=== PATIENT | male | born 1990 | race Caucasian/White ===

== ENCOUNTER 2017-04-13 23:47 | Emergency (ER) | payer SELFPAY ==
[~2017-04-13] VITALS: Ht 180.3 cm; Wt 58.6 kg
[2017-04-13 23:55] VITALS: TEMP 36.7; Ht 180.3 cm; Wt 58.6 kg
[2017-04-14] MEDS ORDERED: IBUP-103 PO (00:24)
--- NOTE | 2017-04-14 00:35 | EMERGENCY ROOM VISIT NOTE ---
History First contact with patient: 00:05 Chief Complaint: ARM PAIN Stated Complaint: LEFT ARM HURTING, NUMB History of Present Illness The patient is a 26 year old male who presents to the Emergency Room with complaints of left arm pain. Patient states symptoms have been going on for approximately 5 days. The patient states the pain radiates down the length of his left arm and he also reports the arm intermittently goes numb. He states that the pain makes it difficult for him to hold things with his left hand. He rates the discomfort a 2/10. He does report some occasional neck pain. Denies any injuries to the arm. Denies any fevers or redness. Review of Systems A 6 point review of systems was reviewed with the patient with pertinent positives and negatives as per history of present illness. All else were negative. Social History Smoking Status: Current Every Day Smoker Current/Historical Medications Scheduled Prednisone (Prednisone), 0 PO DAILY Scheduled PRN Ibuprofen Tab (Advil), 200-600 MG PO Q4H PRN for Pain Physical Exam Vital Signs Date Time Temp Pulse Resp B/P (MAP) Pulse Ox O2 Delivery O2 Flow Rate FiO2 04/14/17 01:45 78 16 99/54 99 Room Air 04/13/17 23:55 36.7 79 16 105/66 98 Room Air Physical Exam VITALS: Vitals are noted on the nurse's note and reviewed by myself. Vital signs stable. GENERAL: This is a 26-year-old male, in no acute distress, nondiaphoretic, well- developed well-nourished. SKIN: No erythema, edema or ecchymosis. HEART: Regular rate and rhythm without murmurs gallops or rubs. LUNGS: Clear to auscultation bilaterally without wheezes, rales or rhonchi. MUSCULOSKELETAL: No tenderness to palpation. Full range of motion of bilateral upper extremities. Strength 5/5. NEURO: Patient was alert and oriented to person place and time. Normal sensation to light and sharp touch. Medical Decision & Procedures ER Provider Diagnostic Interpretation: CT C SPINE: No fracture or malalignment. Degenerative changes. Radiologist: Chandana Lopez MD Medical Decision Differential diagnosis includes cervical radiculopathy, musculoskeletal pain, DVT, cellulitis, among others. The patient is a 26-year-old male who presents today complaining of left arm pain. Exam seems consistent with cervical radiculopathy. CT of the C-spine was performed and showed degenerative changes with no acute findings. Patient will be placed on prednisone. Conservative measures were discussed with the patient. He will follow-up with his primary care provider and was given information for orthopedic spine and may follow-up with them as needed. He verbalized understanding and was discharged home in good condition. Medication Reconcilliation Current Medication List: was personally reviewed by nh Blood Pressure Screening Patient's blood pressure: Normal blood pressure Impression Primary Impression: Cervical radiculopathy Departure Information Dispostion Home / Self-Care Condition GOOD Prescriptions Prednisone (Prednisone) 20 Mg Tab 0 PO DAILY, #18 TAB 3 DAILY FOR 3 DAYS, THEN 2 DAILY FOR 3 DAYS, THEN 1 DAILY FOR 3 DAYS. Prov: Roxanne Bush ., ALINE 04/14/17 Referrals No Doctor, Assigned (PCP) Erwin MadridD.O. Patient Instructions My [facility] Additional Instructions Prednisone as prescribed. For pain control, you can use the following [id number] medicines (if >12 yo): - Regular strength (325mg/tab) Tylenol (acetaminophen) 2 tabs every 4-6 hours as needed. Do not exceed 12 tablets in a 24 hour period. Avoid taking more than 4 grams (4000 mg) of Tylenol per day. This includes any other sources of acetaminophen you may take on a regular basis. - Regular strength (200 mg/tab) Advil (ibuprofen) 1-2 tabs every 4-6 hours as needed. Do not exceed a dose of 3200 mg per day. Follow-up with a primary care provider or orthopedic spine as needed for any worsening or new/concerning symptoms. Return to the emergency department with persistent numbness, weakness of the arm , fevers or any other new/concerning symptoms.
[2017-04-14] MEDS ORDERED: PRED20TA PO (01:39)
[2017-04-14 01:45] VITALS: BP 99/54; PULSE 78; O2SAT 99
--- NOTE | 2017-04-14 07:02 | DIAGNOSTIC IMAGING REPORT ---
CT OF THE CERVICAL SPINE CLINICAL HISTORY: left cervical radiculopathy COMPARISON STUDY: No previous studies for comparison. CT DOSE: 238.19 mGy.cm TECHNIQUE: CT scan of the cervical spine was performed from the skull base to the thoracic inlet. Images are reviewed in the axial, sagittal, and coronal planes. IV contrast was not administered for this examination. A dose lowering technique was utilized adhering to the principles of ALARA. FINDINGS: The visualized portions of the lung apices reveal no evidence of pneumothorax. The prevertebral soft tissues are normal. No fractures or subluxations are visualized. 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 An MRI the cervical spine is recommended in follow-up. This report will be called as this equivocal finding was not described in the pulmonary report. IMPRESSION: 1. No acute fractures or subluxations identified 2. 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 An MRI of the cervical spine is recommended in follow-up. Electronically signed by: Brett Sevilla M.D. 04/14/2017 7:01 AM Dictated Date/Time: 04/14/2017 6:56 AM
[2017-04-15] MEDS ORDERED: OXYC1TAB3 PO (06:45)
== END 2017-04-14 02:04 | disposition home or self-care (01) ==
LOC: C.EDB 23:49 → C.EDC 04-14 02:04
DX: M54.12 Radiculopathy, cervical region (principal); F17.200 Nicotine dependence, unspecified, uncomplicated

== ENCOUNTER 2017-04-15 00:14 | Emergency (ER) | payer SELFPAY ==
[~2017-04-15] VITALS: Ht 180.3 cm; Wt 57.7 kg
[~2017-04-15 00:14] MED LIST: IBUP-103 PO; PRED20TA PO
[2017-04-15 00:21] VITALS: TEMP 36.8; Ht 180.3 cm; Wt 57.7 kg
--- NOTE | 2017-04-15 00:49 | EMERGENCY ROOM VISIT NOTE ---
History Report prepared by Segundo: Cuate Garcia Under the Supervision of: Dr. Bruce Mckay M.D. First contact with patient: 00:27 Chief Complaint: ARM PAIN Stated Complaint: PAIN IN LEFT ARM AND ARM GOES NUMB History of Present Illness The patient is a 26 year old male who presents to the Emergency Room with complaints of worsening left arm pain and numbness starting four days ago. The patient states that he was in the ED last night for similar symptoms, and he was told to come back in for evaluation, and it has been getting worse. The patient denies any recent falls or injuries. Source of History: patient Onset: four days ago Position: arm (left) Quality: numbness Timing: worsening Review of Systems See HPI for pertinent positives & negatives. A total of 10 systems reviewed and were otherwise negative. Past Medical & Surgical Surgical Problems: (1) H/O tooth extraction Family History Diabetes mellitus FHx: cancer FHx: heart disease Hypertension Social History Smoking Status: Current Every Day Smoker Marital Status: Housing Status: lives with family Occupation Status: employed Current/Historical Medications Scheduled Prednisone (Prednisone), 0 PO DAILY Scheduled PRN Ibuprofen Tab (Advil), 200-600 MG PO Q4H PRN for Pain Oxycodone Immediate Rel Tab (Roxicodone Ir), 1-2 TAB PO Q4H PRN for Severe Pain Allergies Uncoded Allergies: SEAFOOD (Allergy, Severe, swelling, 04/13/17) Physical Exam Vital Signs Date Time Temp Pulse Resp B/P (MAP) Pulse Ox O2 Delivery O2 Flow Rate FiO2 04/15/17 06:25 57 16 103/63 99 Room Air 04/15/17 04:26 80 16 121/72 99 Room Air 04/15/17 01:41 78 16 109/63 99 Room Air 04/15/17 00:21 36.8 85 18 103/59 100 Room Air Physical Exam GENERAL: Patient is well appearing and in minimal distress. HEENT: No acute trauma, normocephalic atraumatic, mucous membranes moist, no nasal congestion, no scleral icterus. NECK: No stridor, no adenopathy, no meningismus, trachea is midline. LUNGS: No dyspnea. Clear to auscultation and equal bilaterally. No wheeze, no rhonchi. HEART: Regular rate and rhythm. No murmurs, rubs, gallops appreciated. ABDOMEN: Soft, nontender, bowel sounds positive, no masses appreciated, no peritonitis. BACK: No midline tenderness, no CVA tenderness EXTREMITIES: Pain with range of motion in the left arm. Normal motion all extremities, no cyanosis, no edema. NEUROLOGIC: Alert and oriented, no acute motor or sensory deficits, no focal weakness, cranial nerves grossly intact. SKIN: No rash, no jaundice, no diaphoresis. Medical Decision & Procedures ER Provider Diagnostic Interpretation: Radiology results and stated below per my review and radiologist interpretation: MRI C SPINE : C6-C7 left subarticular extra dural lesion measures 1.2 cm craniocaudally by 0.8 cm wide by 0.4 cm AP is consistent with a disc extrusion and causes severe narrowing of the left lateral recess/foramen and [id number] canal narrowing. There is no abnormal enhancement. Radiologist: Bruce Case MD [facility] 3 VIEWS HISTORY: pre-MRI screening. COMPARISON: None. FINDINGS: There are no radiopaque foreign bodies identified within the orbits. IMPRESSION: No radiopaque foreign bodies identified within the orbits. Electronically signed by: Brett Sevilla M.D. 04/15/2017 6:30 AM Dictated Date/Time: 04/15/2017 6:30 AM Laboratory Results Test 04/15/17 00:43 Bedside Hemoglobin 15.6 g/dl (14.0-18.0) Bedside Hematocrit 46 % (42-52) Bedside Sodium 142 mEq/L (135-144) Bedside Potassium 3.9 mEq/L (3.3-5.0) Bedside Chloride 103 mEq/L (101-112) Bedside Total CO2 29 mEq/l (24-31) Anion Gap 15.0 mmol/L (16-25) Bedside Blood Urea Nitrogen 11 mg/dl (7-18) Bedside Creatinine 0.8 mg/dl (0.6-1.3) Bedside Glucose (other) 83 mg/dl (70-99) Bedside Ionized Calcium (Errol) 1.33 mmol/l (1.12-1.32) Laboratory results as reviewed by me. Medications Administered Medications (Trade) Dose Ordered Sig/Vince Route Start Time Stop Time Status Last Admin Dose Admin Hydromorphone HCl (Dilaudid Inj) 1 mg NOW STAT IV 04/15/17 02:15 04/15/17 02:16 DC 04/15/17 02:44 1 MG Oxycodone HCl (Roxicodone Immediate Rel 5MG Home Pack) 1 homepack UD ONCE PO 04/15/17 06:45 04/15/17 06:46 DC 04/15/17 06:43 1 HOMEPACK Dexamethasone Sodium Phosphate (Decadron Inj) 10 mg NOW ONCE IV 04/15/17 06:45 04/15/17 06:46 DC 04/15/17 06:43 10 MG ED Course 0027: The patient was evaluated in room B4. A complete history and physical exam was performed. 0215: Dilaudid 1mg IV 0446: I reevaluated the patient, and he was doing better after the pain medications. 0730: Reevaluated the patient. Discussed results and discharge instructions: He verbalized understanding and agreement. The patient is ready for discharge. Medical Decision 26 yr old male arrives with complaint of left arm pain. Worse with turning head to side and with raising arm up. No weakness in arm nor hand with no neuro deficits by exam. Vascular intact. CT done 1 day ago with abnormal finding seen on repeat read at C6 thus patient called back for MRI. MRI w/wo reveals severe left foraminal narrowing without evidence abnormal enhancement. Multiple attempts to get in touch with spinal surg to discuss this however prior to them calling back patient requesting discharge. With no neuro deficits it seems reasonable to continue steroids and have him follow up in near term with spine. Reviewed symptoms requiring RTED. Long discussion about risks/restrictions of narcotics. Impression Primary Impression: Cervical disc disorder at C6-C7 level with radiculopathy Scribe Attestation The scribe's documentation has been prepared under my direction and personally reviewed by me in its entirety. I confirm that the note above accurately reflects all work, treatment, procedures, and medical decision making performed by me. Departure Information Dispostion Home / Self-Care Prescriptions Oxycodone Immediate Rel Tab (ROXICODONE IR) 5 Mg Tab 1-2 TAB PO Q4H Y for Severe Pain, #15 TAB Prov: Bruce Mckay M.D. 04/15/17 Referrals Erwin MadridDShahramOShahram Patient Instructions Cervical Spine Disk Probs, My [facility] Additional Instructions You have a disc pinching your C6-C7 nerves on the left side. If you develop arm or hand weakness, worsening pain, or other concerning symptoms return immediately for evaluation. It is important you have this evaluated by a Spinal Surgeon. You have received a narcotic pain medication prescription. These medications may cause drowsiness and should not be used with other sedative medications. Do not drive, drink alcohol, perform dangerous activities, nor make important decisions after taking these medications. intermediate use or inappropriate use may lead to addiction.
[2017-04-15 00:57] LABS: ISTAT CREATININE 0.8 mg/dl (0.6-1.3); ISTAT HEMOGLOBIN 15.6 g/dl (14.0-18.0); ISTAT IONIZED CALCIUM 1.33 mmol/l (1.12-1.32)
[2017-04-15] MEDS ORDERED: HYDROmorphone INJ 1 MG/ML SYR IV STA (02:15)
[2017-04-15] MEDS ORDERED: GADAVIST IV PRN (04:15)
[2017-04-15 06:25] VITALS: BP 103/63; PULSE 57; O2SAT 99
--- NOTE | 2017-04-15 06:32 | DIAGNOSTIC IMAGING REPORT ---
[facility] 3 VIEWS HISTORY: pre-MRI screening. COMPARISON: None. FINDINGS: There are no radiopaque foreign bodies identified within the orbits. IMPRESSION: No radiopaque foreign bodies identified within the orbits. Electronically signed by: Brett Sevilla M.D. 04/15/2017 6:30 AM Dictated Date/Time: 04/15/2017 6:30 AM
[2017-04-15] MEDS ORDERED: DEXAMETHASONE SOD INJ 10 MG/ML VIAL IV ONE (06:45)
[2017-04-15] MEDS ORDERED: OXYCODONE IR HOME PACK PO ONE (06:45)
[2017-04-15] MEDS ORDERED: OXYC1TAB3 PO (06:45)
--- NOTE | 2017-04-15 07:17 | DIAGNOSTIC IMAGING REPORT ---
MRI OF THE CERVICAL SPINE WITH AND WITHOUT CONTRAST CLINICAL HISTORY: Left arm pain and numbness. Abnormal CT with possible C6 mass. COMPARISON: CT of the cervical spine April 14, 2017. TECHNIQUE: Utilizing a 1.5 Sarah magnet and dedicated coil, multiplanar, multiecho imaging of the cervical spine was performed before and after intravenous administration of 5.5 of Gadavist. FINDINGS: Alignment of the cervical spine is anatomic. Vertebral body heights are maintained. There is no marrow replacement. No abnormality within the posterior fossa is identified. Cervical cord signal and caliber are normal. C2-C3: The central canal and neural foramen are patent. C3-C4: The central canal and neural foramen are patent. C4-C5: The central canal and neural foramen are patent. C5-C6: There is minimal disc bulge with a tiny central disc protrusion. Central canal and neural foramen are patent. C6-C7: Note is made of a left paracentral nonenhancing abnormality that measures 1.3 x 0.5 x 0.7 cm and corresponds to the finding on cervical spine CT April 14, 2017. This represent a large disc extrusion that results in marked narrowing of the left lateral recess with narrowing of the left neural foramen and moderate narrowing of the left aspect of the canal at this level. C7-T1: Central canal and neural foramen are patent. IMPRESSION: 1. Large left paracentral disc extrusion at C6-C7 which corresponds to the finding shown on prior CT. This results in marked narrowing of the left lateral recess and left neural foramen at this level with moderate narrowing of the left aspect of the canal at this level. 2. Otherwise, mild multilevel degenerative changes of the cervical spine. Electronically signed by: Rich Jang M.D. 04/15/2017 7:16 AM Dictated Date/Time: 04/15/2017 7:03 AM
== END 2017-04-15 06:55 | disposition home or self-care (01) ==
LOC: C.EDB 00:15
DX: M50.123 Cervical disc disorder at C6-C7 level with radiculopathy (principal); F17.200 Nicotine dependence, unspecified, uncomplicated; Z91.018 Allergy to other foods; Z83.3 Family history of diabetes mellitus; Z80.9 Family history of malignant neoplasm, unspecified; Z82.49 Family history of ischemic heart disease and other diseases of the circulatory system